=== PATIENT | male | born 1995 | race African-American/Black ===

== ENCOUNTER 2016-07-14 17:42 | Emergency (ER) | payer BC ==
[~2016-07-14] VITALS: Ht 177.8 cm; Wt 61.2 kg
[~2016-07-14 17:42] MED LIST: NKM; OMEPRAZOLE20 M2 ORAL; PEPCID20 MG ORAL
[2016-07-14] MEDS ORDERED: EMLA 5gm tube TOPIC ONE (18:30)
[2016-07-14] MEDS ORDERED: LORazepam 0.5mg tab ORAL ONE (18:30)
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
[2016-07-14] MEDS ORDERED: CEPHALEXIN500 MG ORAL (19:18)
[2016-07-14] MEDS ORDERED: TYLENOL EXTRA500 MG ORAL (20:30)
[2016-07-14] MEDS ORDERED: Bacitracin Oint UD TOPIC ONE (20:30)
[2016-07-14 21:11] VITALS: BP 124/57
[2016-07-14 21:13] VITALS: BP 124/57
== END 2016-07-14 21:14 | disposition home or self-care (01) ==
LOC: EMR 18:30
DX: S01.511A Laceration without foreign body of lip, initial encounter (principal); V43.62XA Car passenger injured in collision with other type car in traffic accident, initial encounter; Y92.410 Unspecified street and highway as the place of occurrence of the external cause; Y99.8 Other external cause status

== ENCOUNTER 2017-09-14 22:24 | Emergency (ER) | payer BC ==
[~2017-09-14] VITALS: Ht 172.7 cm; Wt 61.2 kg
[~2017-09-14 22:24] MED LIST changes: +CEPHALEXIN500 MG ORAL; +TYLENOL EXTRA500 MG ORAL
[2017-09-14] MEDS ORDERED: TESSALON PERLE100 MG ORAL (23:01)
[2017-09-14] MEDS ORDERED: IBUPROFEN600 MG ORAL (23:01)
--- NOTE | 2017-09-14 23:08 | Emergency Room Report ---
History of Present Illness General Chief Complaint: Chest Pain Source: Patient Present Illness HPI 22-year-old male, cough, runny nose, sore throat, chest pain for 3 days. Cough is dry, states that he has chest pain only when he coughs. Pt still eating/ drinking well. +sick contacts. No recent travel. No SOB,abdominal pain, n/v/d. Allergies: Coded Allergies: No Known Allergies (Unverified , 05/30/14) Patient History Past Medical History: see triage record Past Surgical History: none Pertinent Family History: none Reviewed Nursing Documentation: PMH: Agreed; PSxH: Agreed Nursing Documentation-PMH Past Medical History: No Stated History Review of Systems All Other Systems: negative except mentioned in HPI Physical Exam Vital Signs Date Time Temp Pulse Resp B/P (MAP) Pulse Ox O2 Delivery O2 Flow Rate FiO2 09/14/17 22:27 98.9 74 18 120/69 98 Room Air 99.0 Sp02 EP Interpretation: reviewed, normal General Appearance: normal inspection, well appearing, no apparent distress, alert, GCS 15, non-toxic Head: normocephalic, atraumatic Eyes: bilateral eye normal inspection, bilateral eye PERRL, bilateral eye EOMI ENT: normal ENT inspection, normal pharynx, normal voice, moist mucus membranes Neck: normal inspection, full range of motion, supple Respiratory: normal inspection, lungs clear, normal breath sounds, no respiratory distress, no retraction, no wheezing, speaking full sentences, chest symmetrical Cardiovascular #1: normal inspection, regular rate, rhythm, no edema, normal capillary refill Cardiovascular #2: 2+ radial (R), 2+ radial (L) Gastrointestinal: normal inspection, non tender, soft, non-distended, no guarding Genitourinary: no CVA tenderness Musculoskeletal: normal inspection, back normal, normal range of motion, non- tender Neurologic: normal inspection, alert, oriented x3, responsive, motor strength/ tone normal, sensory intact, normal gait, speech normal Psychiatric: normal inspection, judgement/insight normal, memory normal Skin: normal inspection, normal color, no rash, warm/dry, well hydrated, normal turgor Medical Decision Making Diagnostic Impression: Primary Impression: Viral upper respiratory illness ER Course 22-year-old male runny nose, cough , chest pain Appears non- toxic, well hydrated, tolerating PO DDX: Viral URI / pneumonia Likely musculoskeletal chest pain Plan: EKG, chest x-ray, pain control ER course: Pt stable in ED, remains nontoxic appearing, no sob. Tolerating PO Disposition: Patient discharged to home with Tessalon Perles and Motrin Patient instructed to follow up with PMD in 1 week. Also instructed to take motrin/tylenol at home. Very strict return precautions discussed with patient such as intractable fever and chills, unable to eat or drink, severe chest pain or shortness of breath. Patient verbalized understanding and agrees with plan. Please note that this Emergency Department Report was dictated using [employer] manager technology software, occasionally this can lead to erroneous entry secondary to interpretation by the dictation equipment EKG Diagnostic Results EP Interpretation: Yes Rate: normal Rhythm: NSR ST Segments: No acute changes ASA given to patient: No Chest X-ray CXR: Ordered: Yes 1 view Indication: Chest pain EP interpretation: Yes Interpretation: No consolidation, no effusion, no PTX, no acute cardiopulmonary disease Impression: No acute disease Electronically signed by Kiran Sood MD Last Vital Signs Date Time Temp Pulse Resp B/P (MAP) Pulse Ox O2 Delivery O2 Flow Rate FiO2 09/14/17 22:36 74 18 Room Air 09/14/17 22:27 98.9 120/69 98 99.0 Disposition: HOME, SELF-CARE Condition: Improved Scripts Benzonatate* (TESSALON PERLE*) 100 Mg Capsule 100 MG ORAL THREE TIMES A DAY, #21 PERLE Prov: Kiran Sood M.D. 09/14/17 Ibuprofen* (MOTRIN*) 600 Mg Tablet 600 MG ORAL Q8H PRN for For Pain, #30 TAB 0 Refills Prov: Kiran Sood M.D. 09/14/17 Patient Instructions: Upper Respiratory Infection, Adult, [id number] Kiran Sood M.D. Sep 14, 2017 23:08
[2017-09-14 23:25] VITALS: BP 120/69
--- NOTE | 2017-09-15 11:22 | Diagnostic Imaging Report ---
Indication: Chest pain cough and congestion Technique: One view of the chest Comparison: 05/30/2014 Findings: Lungs and pleural spaces are clear. Heart size is normal . No significant interim change Impression: No acute process
== END 2017-09-14 23:25 | disposition home or self-care (01) ==
LOC: EMR 22:49
DX: J06.9 Acute upper respiratory infection, unspecified (principal); B34.9 Viral infection, unspecified
CPT/HCPCS: 71045; 93005; 99284

== ENCOUNTER 2017-12-29 22:05 | Emergency (ER) | payer OTHER ==
[~2017-12-29] VITALS: Ht 170.2 cm; Wt 61.2 kg
[~2017-12-29 22:05] MED LIST changes: +IBUPROFEN600 MG ORAL; +TESSALON PERLE100 MG ORAL
[2017-12-29 23:13] VITALS: BP 112/70
--- NOTE | 2017-12-29 23:29 | Emergency Room Report ---
History of Present Illness General Chief Complaint: Flu Like Symptoms Source: Patient Present Illness HPI Is a 22-year-old male with no past medical history. He presents with chief complaint of a cough. Onset for the last for 5 days. He missed work initially and came back to work yesterday. 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 Said he will need a doctor's note. He denies any fever or chills. Girlfriend is sick and coughing. No nausea no vomiting. No fever chills. Coughing is nonproductive Allergies: Coded Allergies: No Known Allergies (Unverified , 05/30/14) Patient History Past Medical History: see triage record, old chart reviewed Pertinent Family History: none Social History: Denies: smoking Immunizations: other Reviewed Nursing Documentation: PMH: Agreed; PSxH: Agreed Nursing Documentation-PMH Past Medical History: No Stated History Review of Systems Eye: Denies: eye pain, blurred vision ENT: Denies: ear pain, nose congestion, throat swelling Respiratory: Reports: cough; Denies: shortness of breath Cardiovascular: Denies: chest pain, palpitations Gastrointestinal: Denies: abdominal pain, diarrhea, nausea, vomiting Musculoskeletal: Denies: back pain, joint pain Skin: Denies: rash Neurological: Denies: headache, numbness Endocrine: Denies: increased thirst, increased urine Hematologic/Lymphatic: Denies: easy bruising All Other Systems: negative except mentioned in HPI Physical Exam Vital Signs Date Time Temp Pulse Resp B/P (MAP) Pulse Ox O2 Delivery O2 Flow Rate FiO2 12/29/17 23:07 97.8 66 16 112/70 99 Room Air 97.9 vitals normal Sp02 EP Interpretation: reviewed, normal General Appearance: well appearing, no apparent distress, alert Head: normocephalic, atraumatic Eyes: bilateral eye PERRL, bilateral eye EOMI ENT: hearing grossly normal, normal pharynx Neck: full range of motion, supple, no meningismus Respiratory: chest non-tender, lungs clear, normal breath sounds Cardiovascular #1: regular rate, rhythm, no murmur Gastrointestinal: normal bowel sounds, non tender, no mass, no organomegaly, no bruit, non-distended Musculoskeletal: back normal, gait/station normal, normal range of motion Psychiatric: mood/affect normal Skin: warm/dry Medical Decision Making Diagnostic Impression: Primary Impression: Viral upper respiratory illness ER Course Patient presents with viral upper rest or infection. No evidence of pneumonia. No evidence of any wheezing. We'll discharge home. Last Vital Signs Date Time Temp Pulse Resp B/P (MAP) Pulse Ox O2 Delivery O2 Flow Rate FiO2 12/29/17 23:13 97.8 67 16 112/70 99 Room Air 97.8 Status: unchanged Disposition: HOME, SELF-CARE Condition: Stable Additional Instructions: Increase fluids. Follow-up with your doctor in 7 days. Return if worse. MARY CUI M.D. Dec 29, 2017 23:29
[2017-12-29 23:30] VITALS: BP 112/70
== END 2017-12-29 23:30 | disposition home or self-care (01) ==
LOC: EMR 23:30
DX: J06.9 Acute upper respiratory infection, unspecified (principal); B97.89 Other viral agents as the cause of diseases classified elsewhere
CPT/HCPCS: 99282

== ENCOUNTER 2018-03-09 22:09 | Emergency (ER) | payer OTHER ==
[~2018-03-09] VITALS: Ht 180.3 cm; Wt 61.2 kg
[2018-03-09 22:20] VITALS: BP 113/66
[2018-03-09] MEDS ORDERED: PENICILLIN V P500 MG PO (22:28)
[2018-03-09] MEDS ORDERED: IBUPROFEN600 MG ORAL (22:28)
[2018-03-09 22:45] VITALS: BP 113/66
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
== END 2018-03-09 23:45 | disposition home or self-care (01) ==
LOC: EMR 22:54
DX: K08.89 Other specified disorders of teeth and supporting structures (principal)
CPT/HCPCS: 99283